=== PATIENT | female | born 1990 | race Two or more races ===

== ENCOUNTER 2024-12-04 16:11 | Inpatient (IN) | payer OTHER ==
[2024-12-04] MEDS: HALOPERIDOL LACTATE 5 MG/ML IM ONE (17:25)
[2024-12-04] MEDS ORDERED: ACETAMINOPHEN INJECTION 100 ML ONE (18:08)
[2024-12-04] MEDS: SODIUM CHLORIDE 1,000 ML IV STA (18:13)
[2024-12-04] MEDS: ACETAMINOPHEN 1000 MG/100 ML BAG IVPB ONE (18:13)
[2024-12-04 18:43] LABS: ABSOLUTE IMMATURE GRANULOCYTES 0.01 x10^3/uL (0.0-0.031); BASOPHILS # 0.02 x10^3/uL (0.01-0.08); EOSINOPHIL % 0.3 % (0.7-5.8); EOSINOPHILS # 0.02 x10^3/uL (0.04-0.36); MCHC 26.5 g/dl (32.2-35.5); MEAN CELL VOLUME 60.0 fl (79.4-94.8); MONOCYTE # 0.04 x10^3/uL (0.24-0.86); MONOCYTE % 0.7 % (4.7-12.5); RDW 19.4 % (12.1-16.8)
[2024-12-04 18:53] LABS: INR 1.37 (0.83-1.09); PROTHROMBIN TIME (PATIENT) 15.1 SEC (9.7-13.0)
[2024-12-04 18:53] LABS: BG HCT 28.0 % (32.4-45.2); VENOUS BASE EXCESS -0.9 mmol/L (-2-2); VENOUS O2 SATURATION 65.3 % (70-80); VENOUS PCO2 25.8 mmHg (38-52); VENOUS PH 7.529 (7.310-7.410)
[2024-12-04 18:55] LABS: ACTIVATED PTT 23.9 SECONDS (25.2-36.5)
[2024-12-04 19:17] LABS: CO2 22.0 mmol/L (21-32)
[2024-12-04 19:18] LABS: GLUCOSE,RANDOM 103.0 mg/dL (74-106)
[2024-12-04 19:20] LABS: SGOT/AST 25.0 U/L (15-37); SGPT/ALT 27.0 U/L (13-61)
[2024-12-04 19:21] LABS: CREATININE 0.7 mg/dL (0.55-1.3)
[2024-12-04 19:22] LABS: TOT PROT 6.9 g/dl (6.4-8.2)
[2024-12-04 19:23] LABS: LACTIC ACID 2.7 mmol/L (0.4-2.0)
[2024-12-04 19:23] LABS: ALK PHOS 65.0 U/L (45-117)
[2024-12-04] MEDS ORDERED: KETOROLAC TROMETHAMINE 15 MG/ML VIAL ONE (19:56)
[2024-12-04] MEDS ORDERED: METOCLOPRAMIDE HCL INJECTION 10 MG/2 ML VIAL ONE (19:56)
[2024-12-04] MEDS: METOCLOPRAMIDE HCL INJECTION 10 MG/2 ML VIAL IVPUSH ONE (20:00)
[2024-12-04] MEDS: KETOROLAC TROMETHAMINE 15 MG/ML VIAL IVPUSH ONE (20:02)
[2024-12-04 20:11] LABS: EPI CELLS 17 /uL (0-25.1); HYALINE CASTS 1 /uL (0-3.1); URINE APPEARANCE CLEAR; URINE BACTERIA >9,000 /uL (0-1359); URINE BILIRUBIN NEGATIVE (NEGATIVE); URINE COLOR YELLOW; URINE GLUCOSE (UA) NEGATIVE (NEGATIVE); URINE KETONE TRACE (NEGATIVE); URINE LEUK ESTERASE TRACE (NEGATIVE); URINE NITRITE POSITIVE (NEGATIVE); URINE PROTEIN TRACE (NEGATIVE); URINE RBC 9 /uL (0-23.9); URINE UROBILINOGEN 0.2 mg/dL (0.2-1.0); URINE WBC 74 /uL (0-25.8)
[2024-12-04] MEDS ORDERED: PIPERACILLIN/TAZOB 3.375 GM 3.375 GM/50 ML BAG IVPB ONE (20:39)
[2024-12-04] MEDS: PIPERACILLIN/TAZOB 3.375 GM 3.375 GM in DEXTROSE 5%-WATER - 50 ML IVPB ONE (20:44)
[2024-12-04] MEDS: LACTATED RINGERS SOLUTION 1000 ML INFUS.BAG IV ONE (22:02)
[2024-12-04] MEDS ORDERED: POTASSIUM CHLORIDE ORAL LIQUID 20 MEQ/15 ML ONE (22:05)
[2024-12-04] MEDS: POTASSIUM CHLORIDE ORAL LIQUID 20 MEQ/15 ML PO ONE (22:07)
[2024-12-05] MEDS ORDERED: ACETAMINOPHEN INJECTION 100 ML ONE ×2 (00:16→00:22)
[2024-12-05] MEDS: LACTATED RINGERS SOLUTION 1000 ML INFUS.BAG IV ONE (00:24)
[2024-12-05] MEDS: ACETAMINOPHEN 1000 MG/100 ML BAG IVPB ONE (00:24)
[2024-12-05] MEDS ORDERED: DOCUSATE SODIUM 100 MG CAPSULE (FP) PO PRN (00:33)
[2024-12-05] MEDS ORDERED: ACETAMINOPHEN 500 MG TABLET (FP) PO PRN ×2 (00:38→06:00)
[2024-12-05] MEDS: PIPERACILLIN/TAZOB 3.375 GM 3.375 GM in DEXTROSE 5%-WATER - 50 ML IVPB SCH (02:54)
[2024-12-05] MEDS ORDERED: PIPERACILLIN/TAZOB 3.375 GM 3.375 GM in DEXTROSE 5%-WATER - 50 ML IVPB SCH (03:00)
[2024-12-05 08:12] LABS: ABSOLUTE IMMATURE GRANULOCYTES 0.04 x10^3/uL (0.0-0.031); BASOPHILS # 0.02 x10^3/uL (0.01-0.08); EOSINOPHIL % 1.1 % (0.7-5.8); EOSINOPHILS # 0.09 x10^3/uL (0.04-0.36); MCHC 27.7 g/dl (32.2-35.5); MEAN CELL VOLUME 66.2 fl (79.4-94.8); MEAN PLT VOLUME 10.2 fl (9.4-12.3); MONOCYTE # 0.60 x10^3/uL (0.24-0.86); MONOCYTE % 7.5 % (4.7-12.5); RDW 23.3 % (12.1-16.8)
[2024-12-05 08:21] LABS: CO2 27.0 mmol/L (21-32); GLUCOSE,RANDOM 99.0 mg/dL (74-106)
[2024-12-05 08:24] LABS: CREATININE 0.4 mg/dL (0.55-1.3)
[2024-12-05] MEDS: LACTATED RINGERS SOLUTION 1,000 ML/1,000 ML INFUS.BAG IV SCH (09:04)
[2024-12-05 13:15] VITALS: BMI 29.2
[2024-12-05 14:25] LABS: IRON SERUM 13 ug/dL (50-175)
[2024-12-05] MEDS: DOXYCYCLINE INJECTION 100 MG in DEXTROSE 5%-WATER 100 ML IVPB SCH (21:15)
[2024-12-06 08:15] LABS: ABSOLUTE IMMATURE GRANULOCYTES 0.02 x10^3/uL (0.0-0.031); BASOPHILS # 0.02 x10^3/uL (0.01-0.08); EOSINOPHIL % 3.1 % (0.7-5.8); EOSINOPHILS # 0.17 x10^3/uL (0.04-0.36); MCHC 28.1 g/dl (32.2-35.5); MEAN CELL VOLUME 65.3 fl (79.4-94.8); MEAN PLT VOLUME 10.0 fl (9.4-12.3); MONOCYTE # 0.54 x10^3/uL (0.24-0.86); MONOCYTE % 9.9 % (4.7-12.5); RDW 23.0 % (12.1-16.8)
[2024-12-06] MEDS: CEFTRIAXONE 2 GM in DEXTROSE 5%-WATER 100 ML IVPB SCH (10:43)
[2024-12-06 10:48] LABS: CO2 26.0 mmol/L (21-32); GLUCOSE,RANDOM 127.0 mg/dL (74-106)
[2024-12-06 10:51] LABS: CREATININE 0.4 mg/dL (0.55-1.3)
[2024-12-07 10:18] LABS: ABSOLUTE IMMATURE GRANULOCYTES 0.05 x10^3/uL (0.0-0.031); BASOPHILS # 0.01 x10^3/uL (0.01-0.08); EOSINOPHIL % 1.7 % (0.7-5.8); EOSINOPHILS # 0.10 x10^3/uL (0.04-0.36); MCHC 27.6 g/dl (32.2-35.5); MEAN CELL VOLUME 64.9 fl (79.4-94.8); MONOCYTE # 0.18 x10^3/uL (0.24-0.86); MONOCYTE % 3.1 % (4.7-12.5); RDW 24.0 % (12.1-16.8)
[2024-12-07 11:14] LABS: CO2 26.0 mmol/L (21-32); GLUCOSE,RANDOM 142.0 mg/dL (74-106)
[2024-12-07 11:17] LABS: CREATININE 0.5 mg/dL (0.55-1.3); SGOT/AST 19.0 U/L (15-37); SGPT/ALT 41.0 U/L (13-61)
[2024-12-07 11:18] LABS: TOT PROT 6.5 g/dl (6.4-8.2)
[2024-12-07 11:20] LABS: ALK PHOS 61.0 U/L (45-117)
[2024-12-07 14:04] VITALS: RESP 18
[2024-12-07 22:56] VITALS: TEMP 98.6
[2024-12-08 09:21] LABS: MCHC 27.6 g/dl (32.2-35.5); MEAN CELL VOLUME 65.2 fl (79.4-94.8); MEAN PLT VOLUME 9.9 fl (9.4-12.3); RDW 24.1 % (12.1-16.8)
[2024-12-08 10:54] VITALS: BP 114/62; PULSE 49
[2024-12-08 10:56] LABS: CO2 27.0 mmol/L (21-32); GLUCOSE,RANDOM 92.0 mg/dL (74-106)
[2024-12-08 10:59] LABS: CREATININE 0.4 mg/dL (0.55-1.3); SGOT/AST 33.0 U/L (15-37); SGPT/ALT 62.0 U/L (13-61)
[2024-12-08 11:00] LABS: TOT PROT 6.3 g/dl (6.4-8.2)
[2024-12-08 11:02] LABS: ALK PHOS 65.0 U/L (45-117)
[2024-12-08] MEDS: IRON SUCROSE INJECTION 200 MG in SODIUM CHLORIDE 100 ML IVPB ONE (11:22)
== END 2024-12-08 15:16 | disposition home or self-care (01) | DRG 720 ==
LOC: JER 16:11 → JERBED 21:45 → J4S 12-05 02:35
PROVIDERS: ADMIT Internal Medicine; ATTEND Nurse Practitioner Family
PROC: 30233N1 Transfusion of Nonautologous Red Blood Cells into Peripheral Vein, Percutaneous Approach (ICD-10-PCS; principal; 2024-12-04)
DX: A41.51 Sepsis due to Escherichia coli [E. coli] (principal); E87.6 Hypokalemia; N39.0 Urinary tract infection, site not specified; N92.0 Excessive and frequent menstruation with regular cycle; D50.9 Iron deficiency anemia, unspecified; N83.201 Unspecified ovarian cyst, right side; N83.202 Unspecified ovarian cyst, left side; I95.9 Hypotension, unspecified
CPT/HCPCS: 36415; 36430; 71045-TC-FY; 74177-TC; 76830-TC; 80048; 80053; 81003; 82248; 82272; 82607; 82728; 82746; 82803; 82930; 82962; 83010; 83540; 83550; 83605; 83615; 83735; 84100; 84484; 84703; 85025; 85610; 85730; 86304; 86618; 86850; 86880; 86900; 86901; 86922; 87040; 87086; 87207; 87491; 87591; 87637-QW; 87661; 87798; 93005; 93010; 99285-25; J1756; P9058; Q9967